=== PATIENT | female | born 1950 | race Caucasian/White ===

== ENCOUNTER 2021-10-28 08:06 | Outpatient (CLI) | payer MEDICARE | END 2021-10-28 08:07 | disposition home or self-care (01) | LOC: CSHWCC 08:06 | PROVIDERS: ATTEND Nurse Practitioner Family | DX: T81.89XD Other complications of procedures, not elsewhere classified, subsequent encounter (principal) | CPT/HCPCS: 11042; 97607; 99203; G0463 ==

== ENCOUNTER 2021-11-18 09:42 | Outpatient (CLI) | payer MEDICARE | END 2021-11-18 09:43 | disposition home or self-care (01) | LOC: CSHWCC 09:42 | PROVIDERS: ATTEND Nurse Practitioner Family | DX: S81.802D Unspecified open wound, left lower leg, subsequent encounter (principal); R60.0 Localized edema | CPT/HCPCS: 11042; 87070; 87205; 87252; 97139; G0463; 99212 ==

== ENCOUNTER 2021-12-02 10:14 | Outpatient (CLI) | payer MEDICARE | END 2021-12-02 10:15 | disposition home or self-care (01) | LOC: CSHWCC 10:14 | PROVIDERS: ATTEND Nurse Practitioner Family | DX: S81.802D Unspecified open wound, left lower leg, subsequent encounter (principal); R60.0 Localized edema | CPT/HCPCS: 97607 ==

== ENCOUNTER 2021-12-09 13:41 | Outpatient (CLI) | payer MEDICARE | END 2021-12-09 13:42 | disposition home or self-care (01) | LOC: CSHWCC 13:41 | PROVIDERS: ATTEND Nurse Practitioner Family | DX: S81.802D Unspecified open wound, left lower leg, subsequent encounter (principal); R60.0 Localized edema | CPT/HCPCS: 97607 ==

== ENCOUNTER 2021-12-15 12:55 | Outpatient (CLI) | payer MEDICARE | END 2021-12-15 12:56 | disposition home or self-care (01) | LOC: CSHWCC 12:55 | PROVIDERS: ATTEND Nurse Practitioner Family | DX: S81.802D Unspecified open wound, left lower leg, subsequent encounter (principal); R60.0 Localized edema | CPT/HCPCS: 11042; 97607 ==

== ENCOUNTER 2021-12-23 10:42 | Outpatient (CLI) | payer MEDICARE | END 2021-12-23 10:43 | disposition home or self-care (01) | LOC: CSHWCC 10:42 | PROVIDERS: ATTEND Nurse Practitioner Family | DX: S81.802D Unspecified open wound, left lower leg, subsequent encounter (principal); R60.0 Localized edema | CPT/HCPCS: 97607 ==

== ENCOUNTER 2021-12-30 10:56 | Outpatient (CLI) | payer MEDICARE | END 2021-12-30 10:57 | disposition home or self-care (01) | LOC: CSHWCC 10:56 | PROVIDERS: ATTEND Nurse Practitioner Family | DX: S81.802D Unspecified open wound, left lower leg, subsequent encounter (principal); R60.0 Localized edema | CPT/HCPCS: 29581; 97607 ==

== ENCOUNTER 2022-01-06 09:17 | Outpatient (CLI) | payer MEDICARE | END 2022-01-06 09:18 | disposition home or self-care (01) | LOC: CSHWCC 09:17 | PROVIDERS: ATTEND Nurse Practitioner Family | DX: S81.802D Unspecified open wound, left lower leg, subsequent encounter (principal); R60.0 Localized edema | CPT/HCPCS: 29581; 97607 ==

== ENCOUNTER 2022-01-13 10:26 | Outpatient (CLI) | payer MEDICARE | END 2022-01-13 10:27 | disposition home or self-care (01) | LOC: CSHWCC 10:26 | PROVIDERS: ATTEND Nurse Practitioner Family | DX: S81.802D Unspecified open wound, left lower leg, subsequent encounter (principal); R60.0 Localized edema | CPT/HCPCS: 97139; G0463; 99213 ==

== ENCOUNTER 2022-01-27 10:05 | Outpatient (CLI) | payer MEDICARE | END 2022-01-27 10:06 | disposition home or self-care (01) | LOC: CSHWCC 10:05 | PROVIDERS: ATTEND Nurse Practitioner Family | DX: R60.0 Localized edema (principal) ==

== ENCOUNTER 2022-02-09 09:11 | Outpatient (CLI) | payer MEDICARE | END 2022-02-09 09:12 | disposition home or self-care (01) | LOC: CSHWCC 09:11 | PROVIDERS: ATTEND Nurse Practitioner Family | DX: R60.0 Localized edema (principal) ==

== ENCOUNTER 2022-02-16 09:54 | Outpatient (CLI) | payer MEDICARE | END 2022-02-16 09:55 | disposition home or self-care (01) | LOC: CSHWCC 09:54 | PROVIDERS: ATTEND Nurse Practitioner Family | DX: S61.401D Unspecified open wound of right hand, subsequent encounter (principal) ==

== ENCOUNTER 2022-02-23 08:31 | Outpatient (CLI) | payer MEDICARE | END 2022-02-23 08:32 | disposition home or self-care (01) | LOC: CSHWCC 08:31 | PROVIDERS: ATTEND Nurse Practitioner Family | DX: S61.401D Unspecified open wound of right hand, subsequent encounter (principal) | CPT/HCPCS: 99212; G0463 ==

== ENCOUNTER 2022-03-02 09:17 | Outpatient (CLI) | payer MEDICARE | END 2022-03-02 09:18 | disposition home or self-care (01) | LOC: CSHWCC 09:17 | PROVIDERS: ATTEND Nurse Practitioner Family | DX: S61.401D Unspecified open wound of right hand, subsequent encounter (principal) | CPT/HCPCS: 99211; G0463 ==

== ENCOUNTER 2023-08-13 08:48 | Outpatient (CLI) | payer MEDICARE | END 2023-08-13 08:49 | disposition home or self-care (01) | LOC: CSHWCC 08:48 | PROVIDERS: ATTEND Physician Assistant | DX: I87.322 Chronic venous hypertension (idiopathic) with inflammation of left lower extremity (principal); I87.301 Chronic venous hypertension (idiopathic) without complications of right lower extremity; S81.802D Unspecified open wound, left lower leg, subsequent encounter; R60.0 Localized edema | CPT/HCPCS: 99213; G0463 ==